=== PATIENT | female | born 1935 | race Caucasian/White ===

== ENCOUNTER 2018-04-15 21:09 | Inpatient (IN) | payer MEDICARE ==
[~2018-04-15] VITALS: Ht 162.6 cm; Wt 102.4 kg
[2018-04-15] MEDS ORDERED: ONDANSETRON ODT 4 MG ONE (21:44)
[2018-04-15] MEDS ORDERED: MORPHINE SULFATE 4 MG/ML, 1ML ONE (21:44)
[2018-04-15] MEDS ORDERED: ONDANSETRON ODT 4 MG PO ONE (22:00)
[2018-04-15] MEDS ORDERED: SODIUM CHLORIDE 0.9% 1,000ML IVBOLUS ONE (22:00)
[2018-04-15] MEDS: MORPHINE SULFATE 4 MG/ML, 1ML IVPush PRN (22:12)
[2018-04-15 22:38] LABS: ALANINE AMINOTRANSFERASE 88 U/L (12-78); ANION GAP 7 mmol/L (5-15); BASOPHILS # (AUTO) 0.02 x10^3/uL (0-0.1); BASOPHILS % (AUTO) 0 % (0-1); CALCIUM 9.4 mg/dL (8.5-10.1); CHLORIDE 105 mmol/L (98-107); CREATININE 1.11 mg/dL (0.55-1.02); EOSINOPHILS # (AUTO) 0.02 x10^3/uL (0-0.4); EOSINOPHILS % (AUTO) 0 % (1-7); HCT (SEDRATE) 45.6 % (34.6-47.8); LYMPHOCYTES # (AUTO) 1.14 x10^3/uL (1-3.4); LYMPHOCYTES % (AUTO) 13 % (22-44); MD NO; MEAN CORPUSCULAR HEMOGLOBIN 32.1 pg (27.0-34.8); MEAN CORPUSCULAR HGB CONC 33.8 g/dL (32.4-35.8); MEAN CORPUSCULAR VOLUME 94.8 fL (80-100); MEAN PLATELET VOLUME 9.2 fL (7.4-10.4); MONOCYTES # (AUTO) 0.46 x10^3/uL (0.2-0.8); MONOCYTES % (AUTO) 5 % (2-9); NEUTROPHILS # (AUTO) 7.01 x10^3/uL (1.8-6.8); NEUTROPHILS % (AUTO) 81 % (42-75); PLATELET COUNT 198 x10^3/uL (130-400); RED BLOOD COUNT 4.77 x10^6/uL (3.82-5.3); RED CELL DISTRIBUTION WIDTH 14.2 % (9.6-15.2)
[2018-04-15 22:42] LABS: SALICYLATE LEVEL < 1.7 mg/dL (2.8-20.0)
[2018-04-15 22:44] LABS: MICROSCOPIC AUTO
[2018-04-15 22:46] LABS: ALKALINE PHOSPHATASE 154 U/L (45-117); BILIRUBIN,TOTAL 0.9 mg/dL (0.2-1.0); FREE T4 (FREE THYROXINE) 1.24 ng/dL (0.76-1.46); TOTAL PROTEIN 7.8 g/dL (6.4-8.2)
[2018-04-15 22:49] LABS: ACETAMINOPHEN < 2 mcg/mL (10-30)
[2018-04-15 22:52] LABS: CULTURE INDICATED? NO
[2018-04-15] MEDS ORDERED: GADOBUTROL 10 MMOL/10 ML PFS ONE (23:40)
[2018-04-16] MEDS ORDERED: MORPHINE SULFATE 4 MG/ML, 1ML ONE (00:58)
[2018-04-16] MEDS: MORPHINE SULFATE 4 MG/ML, 1ML IVPush PRN (00:59)
[2018-04-16 02:32] VITALS: BP 141/85
[2018-04-16] MEDS ORDERED: SODIUM CHLORIDE 0.9% 1,000 ML IV SCH (04:49)
[2018-04-16] MEDS ORDERED: hydrALAzine 20 MG/ML, 1ML IVPush PRN (05:00)
[2018-04-16] MEDS ORDERED: METHOCARBAMOL 500 MG TABLET PO PRN (05:00)
[2018-04-16] MEDS ORDERED: KETOROLAC 30 MG/1 ML IV PRN (05:00)
[2018-04-16] MEDS ORDERED: morphine SULFATE 10 MG/ML, 1ML IVPush PRN (05:00)
[2018-04-16] MEDS ORDERED: ACETAMINOPHEN 325 MG TABLET PO PRN (05:00)
[2018-04-16] MEDS ORDERED: ONDANSETRON 2MG/ML, 2ML IVPush PRN (05:00)
[2018-04-16 05:13] LABS: AMPHETAMINE SCREEN, URINE Negative (Negative); BARBITURATE SCREEN, URINE Negative (Negative); BENZODIAZEPINE SCREEN, URINE Negative (Negative); CANNABINOID SCREEN, URINE Negative (Negative); COCAINE SCREEN, URINE Negative (Negative); METHADONE SCREEN, URINE Negative (Negative); OPIATE SCREEN, URINE Positive (Negative)
[2018-04-16] MEDS: HEPARIN 5,000 UNITS/ML, 1ML SQ SCH ×3 (05:53→21:35)
[2018-04-16 08:14] VITALS: BP 138/81
[2018-04-16] MEDS: LACTULOSE 10 GM/15 ML UDC PO SCH ×2 (08:22→21:35)
[2018-04-16] MEDS: ACETAMINOPHEN 325 MG TABLET PO SCH ×2 (13:10→18:30)
[2018-04-16 13:52] VITALS: BP 134/86
[2018-04-16 19:27] VITALS: BP 132/84
[2018-04-16] MEDS ORDERED: OMNIPAQUE 350 MG/ML, 100ML BOTTLE ONE (20:14)
[2018-04-16] MEDS: ATORVASTATIN 40 MG TABLET PO SCH (21:34)
[2018-04-16] MEDS: CALCIUM CARBONATE 500 MG TABLET PO SCH (21:35)
[2018-04-17] MEDS: ACETAMINOPHEN 325 MG TABLET PO SCH ×4 (00:45→17:34)
[2018-04-17 02:23] VITALS: BP 111/80
[2018-04-17 04:52] LABS: O2 FLOW 4 L/min
[2018-04-17 04:54] LABS: BASOPHILS # (AUTO) 0.03 x10^3/uL (0-0.1); BASOPHILS % (AUTO) 0 % (0-1); EOSINOPHILS # (AUTO) 0.17 x10^3/uL (0-0.4); EOSINOPHILS % (AUTO) 2 % (1-7); LYMPHOCYTES # (AUTO) 2.86 x10^3/uL (1-3.4); LYMPHOCYTES % (AUTO) 28 % (22-44); MD NO; MEAN CORPUSCULAR HEMOGLOBIN 32.4 pg (27.0-34.8); MEAN CORPUSCULAR HGB CONC 33.9 g/dL (32.4-35.8); MEAN CORPUSCULAR VOLUME 95.5 fL (80-100); MEAN PLATELET VOLUME 9.2 fL (7.4-10.4); MONOCYTES # (AUTO) 0.53 x10^3/uL (0.2-0.8); MONOCYTES % (AUTO) 5 % (2-9); NEUTROPHILS # (AUTO) 6.77 x10^3/uL (1.8-6.8); NEUTROPHILS % (AUTO) 65 % (42-75); PLATELET COUNT 208 x10^3/uL (130-400); RED BLOOD COUNT 4.86 x10^6/uL (3.82-5.3); RED CELL DISTRIBUTION WIDTH 14.9 % (9.6-15.2)
[2018-04-17 05:05] LABS: INTERNATIONAL NORMALIZED RATIO 0.99 (0.93-1.1); PROTHROMBIN TIME 10.2 Seconds (9.6-11.5)
[2018-04-17 05:07] LABS: ALANINE AMINOTRANSFERASE 287 U/L (12-78); ANION GAP 22 mmol/L (5-15); CALCIUM 9.9 mg/dL (8.5-10.1); CHLORIDE 106 mmol/L (98-107); CREATININE 1.25 mg/dL (0.55-1.02)
[2018-04-17 05:10] LABS: ALKALINE PHOSPHATASE 245 U/L (45-117); BILIRUBIN,TOTAL 0.8 mg/dL (0.2-1.0); CHOL/HDL RATIO 4.2; CHOLESTEROL, TOTAL 193 mg/dL (140-239); HDL CHOL % 24 % (28-40); HDL CHOLESTEROL (DIRECT) 46 mg/dL (40-60); LDL CHOLESTEROL,CALCULATED 116 mg/dL (54-169); LDL/HDL RATIO 2.5 (0.5-3.0); TOTAL PROTEIN 8.1 g/dL (6.4-8.2); TRIGLYCERIDES 157 mg/dL (50-200); VLDL CHOLESTEROL 31 mg/dL (0-25)
[2018-04-17] MEDS: SODIUM CHLORIDE 0.9% 1,000 ML IV SCH (06:00)
[2018-04-17] MEDS: LEVETIRACETAM 500 MG in SODIUM CHLORIDE 0.9% 100 ML IV SCH ×2 (06:00→17:34)
[2018-04-17] MEDS: HEPARIN 5,000 UNITS/ML, 1ML SQ SCH ×3 (06:01→21:48)
[2018-04-17] MEDS: ALENDRONATE 10 MG TABLET PO SCH (06:26)
[2018-04-17] MEDS: ASPIRIN 81 MG TABLET EC PO SCH (06:26)
[2018-04-17 07:00] VITALS: BP 129/82
[2018-04-17] MEDS: CALCIUM CARBONATE 500 MG TABLET PO SCH ×2 (08:09→20:20)
[2018-04-17] MEDS: LACTULOSE 10 GM/15 ML UDC PO SCH ×2 (08:09→20:18)
[2018-04-17] MEDS ORDERED: FURO20TA3 PO (10:38)
[2018-04-17] MEDS ORDERED: LEVE750T13 PO (10:38)
[2018-04-17] MEDS ORDERED: HYDR-879 PO (10:38)
[2018-04-17] MEDS ORDERED: GABA-826 PO (10:38)
[2018-04-17] MEDS ORDERED: POTASSIUM CHLORIDE 40 MEQ in SODIUM CHLORIDE 0.9% 500 ML IV ONE (11:00)
[2018-04-17 14:10] VITALS: BP 134/78
[2018-04-17 20:00] VITALS: BP 125/83
[2018-04-17] MEDS: GABAPENTIN 100 MG CAPSULE PO SCH (20:20)
[2018-04-17] MEDS: ATORVASTATIN 40 MG TABLET PO SCH (20:20)
[2018-04-18] MEDS: ACETAMINOPHEN 325 MG TABLET PO SCH ×4 (00:24→18:30)
[2018-04-18 01:36] VITALS: BP 162/85
[2018-04-18] MEDS: SODIUM CHLORIDE 0.9% 1,000 ML IV SCH ×2 (04:17→20:42)
[2018-04-18] MEDS: LEVETIRACETAM 500 MG in SODIUM CHLORIDE 0.9% 100 ML IV SCH ×2 (05:18→16:53)
[2018-04-18 05:44] LABS: ANION GAP 5 mmol/L (5-15); CHLORIDE 112 mmol/L (98-107)
[2018-04-18] MEDS: ALENDRONATE 10 MG TABLET PO SCH (06:13)
[2018-04-18] MEDS: ASPIRIN 81 MG TABLET EC PO SCH (06:13)
[2018-04-18] MEDS: HEPARIN 5,000 UNITS/ML, 1ML SQ SCH ×3 (06:13→22:20)
[2018-04-18 06:14] LABS: CREATININE 0.71 mg/dL (0.55-1.02)
[2018-04-18 07:55] VITALS: BP 145/86
[2018-04-18] MEDS: CALCIUM CARBONATE 500 MG TABLET PO SCH ×2 (09:46→20:42)
[2018-04-18] MEDS: GABAPENTIN 100 MG CAPSULE PO SCH ×3 (09:46→20:42)
[2018-04-18] MEDS: LACTULOSE 10 GM/15 ML UDC PO SCH ×2 (09:47→20:39)
[2018-04-18] MEDS ORDERED: GADOBUTROL 10 MMOL/10 ML PFS ONE (13:46)
[2018-04-18 14:17] VITALS: BP 124/77
[2018-04-18] MEDS: CEFTRIAXONE 2 GM in SODIUM CHLORIDE 0.9% 50 ML IV SCH (14:53)
[2018-04-18 19:38] VITALS: BP 116/75
[2018-04-19] MEDS: ACETAMINOPHEN 325 MG TABLET PO SCH ×4 (00:28→18:25)
[2018-04-19 00:44] VITALS: BP 125/76
[2018-04-19 05:34] LABS: ALBUMIN 2.3 g/dL (3.4-5.0); ANION GAP 7 mmol/L (5-15); CALCIUM 8.8 mg/dL (8.5-10.1); CHLORIDE 112 mmol/L (98-107)
[2018-04-19 05:38] LABS: ALANINE AMINOTRANSFERASE 109 U/L (12-78); ALKALINE PHOSPHATASE 151 U/L (45-117); BILIRUBIN,TOTAL 0.4 mg/dL (0.2-1.0); CREATININE 0.74 mg/dL (0.55-1.02); MEAN CORPUSCULAR HEMOGLOBIN 32.1 pg (27.0-34.8); MEAN CORPUSCULAR HGB CONC 33.6 g/dL (32.4-35.8); MEAN CORPUSCULAR VOLUME 95.6 fL (80-100); MEAN PLATELET VOLUME 9.3 fL (7.4-10.4); PLATELET COUNT 176 x10^3/uL (130-400); RED BLOOD COUNT 4.15 x10^6/uL (3.82-5.3); RED CELL DISTRIBUTION WIDTH 14.8 % (9.6-15.2); TOTAL PROTEIN 6.3 g/dL (6.4-8.2)
[2018-04-19] MEDS: LEVETIRACETAM 500 MG in SODIUM CHLORIDE 0.9% 100 ML IV SCH ×2 (05:39→18:25)
[2018-04-19 05:57] LABS: BASOPHILS # (AUTO) 0.03 x10^3/uL (0-0.1); BASOPHILS % (AUTO) 0 % (0-1); EOSINOPHILS # (AUTO) 0.08 x10^3/uL (0-0.4); EOSINOPHILS % (AUTO) 1 % (1-7); LYMPHOCYTES # (AUTO) 1.32 x10^3/uL (1-3.4); LYMPHOCYTES % (AUTO) 19 % (22-44); MD SCAN; MONOCYTES # (AUTO) 0.42 x10^3/uL (0.2-0.8); MONOCYTES % (AUTO) 6 % (2-9); NEUTROPHILS # (AUTO) 5.25 x10^3/uL (1.8-6.8); NEUTROPHILS % (AUTO) 74 % (42-75)
[2018-04-19] MEDS: ASPIRIN 81 MG TABLET EC PO SCH (06:23)
[2018-04-19] MEDS: HEPARIN 5,000 UNITS/ML, 1ML SQ SCH ×3 (06:23→21:52)
[2018-04-19] MEDS: ALENDRONATE 10 MG TABLET PO SCH (06:23)
[2018-04-19 07:34] VITALS: BP 141/79
[2018-04-19] MEDS: GABAPENTIN 100 MG CAPSULE PO SCH ×3 (08:19→21:52)
[2018-04-19] MEDS: CALCIUM CARBONATE 500 MG TABLET PO SCH ×2 (08:20→21:52)
[2018-04-19] MEDS: POTASSIUM CHLORIDE 20 MEQ TAB.ER.PRT PO SCH ×2 (08:20→16:32)
[2018-04-19 13:40] VITALS: BP 129/85
[2018-04-19] MEDS: SODIUM CHLORIDE 0.9% 1,000 ML IV SCH (14:01)
[2018-04-19] MEDS: CEFTRIAXONE 2 GM in SODIUM CHLORIDE 0.9% 50 ML IV SCH (14:36)
[2018-04-19 20:19] VITALS: BP 126/79
[2018-04-20] MEDS: ACETAMINOPHEN 325 MG TABLET PO SCH ×4 (00:30→17:08)
[2018-04-20 01:35] VITALS: BP 149/84
[2018-04-20 04:57] LABS: BASOPHILS # (AUTO) 0.03 x10^3/uL (0-0.1); BASOPHILS % (AUTO) 1 % (0-1); EOSINOPHILS # (AUTO) 0.09 x10^3/uL (0-0.4); EOSINOPHILS % (AUTO) 2 % (1-7); LYMPHOCYTES # (AUTO) 1.32 x10^3/uL (1-3.4); LYMPHOCYTES % (AUTO) 24 % (22-44); MD NO; MEAN CORPUSCULAR HEMOGLOBIN 31.8 pg (27.0-34.8); MEAN CORPUSCULAR VOLUME 93.7 fL (80-100); MEAN PLATELET VOLUME 8.9 fL (7.4-10.4); MONOCYTES # (AUTO) 0.35 x10^3/uL (0.2-0.8); MONOCYTES % (AUTO) 6 % (2-9); NEUTROPHILS # (AUTO) 3.74 x10^3/uL (1.8-6.8); NEUTROPHILS % (AUTO) 68 % (42-75); PLATELET COUNT 179 x10^3/uL (130-400); RED BLOOD COUNT 4.09 x10^6/uL (3.82-5.3); RED CELL DISTRIBUTION WIDTH 15.1 % (9.6-15.2)
[2018-04-20 05:05] LABS: ALANINE AMINOTRANSFERASE 81 U/L (12-78); ALBUMIN 2.3 g/dL (3.4-5.0); ANION GAP 7 mmol/L (5-15); C-REACTIVE PROTEIN, QUANT 0.82 mg/dL (0.02-0.49); CHLORIDE 114 mmol/L (98-107); CREATININE 0.68 mg/dL (0.55-1.02)
[2018-04-20 05:07] LABS: ALKALINE PHOSPHATASE 143 U/L (45-117); BILIRUBIN,TOTAL 0.3 mg/dL (0.2-1.0); TOTAL PROTEIN 6.1 g/dL (6.4-8.2)
[2018-04-20 05:33] LABS: HCT (SEDRATE) 39.7 % (34.6-47.8)
[2018-04-20] MEDS: LEVETIRACETAM 500 MG in SODIUM CHLORIDE 0.9% 100 ML IV SCH ×2 (05:38→17:08)
[2018-04-20] MEDS: SODIUM CHLORIDE 0.9% 1,000 ML IV SCH (05:39)
[2018-04-20] MEDS: ASPIRIN 81 MG TABLET EC PO SCH (05:40)
[2018-04-20] MEDS: HEPARIN 5,000 UNITS/ML, 1ML SQ SCH ×3 (05:40→21:55)
[2018-04-20] MEDS: ALENDRONATE 10 MG TABLET PO SCH (05:41)
[2018-04-20] MEDS: POTASSIUM CHLORIDE 20 MEQ TAB.ER.PRT PO SCH ×2 (07:58→17:08)
[2018-04-20] MEDS: GABAPENTIN 100 MG CAPSULE PO SCH ×3 (07:58→19:55)
[2018-04-20] MEDS: CALCIUM CARBONATE 500 MG TABLET PO SCH ×2 (07:58→19:55)
[2018-04-20 08:05] VITALS: BP 150/104
[2018-04-20 13:41] VITALS: BP 118/85
[2018-04-20] MEDS: CEFTRIAXONE 2 GM in SODIUM CHLORIDE 0.9% 50 ML IV SCH (14:16)
[2018-04-20 20:15] VITALS: BP 151/81
[2018-04-21] MEDS: SODIUM CHLORIDE 0.9% 1,000 ML IV SCH ×2 (00:28→15:50)
[2018-04-21] MEDS: ACETAMINOPHEN 325 MG TABLET PO SCH ×5 (00:29→20:38)
[2018-04-21 02:14] VITALS: BP 133/83
[2018-04-21 05:05] LABS: BASOPHILS # (AUTO) 0.03 x10^3/uL (0-0.1); BASOPHILS % (AUTO) 1 % (0-1); EOSINOPHILS # (AUTO) 0.12 x10^3/uL (0-0.4); EOSINOPHILS % (AUTO) 2 % (1-7); LYMPHOCYTES # (AUTO) 1.47 x10^3/uL (1-3.4); LYMPHOCYTES % (AUTO) 24 % (22-44); MD NO; MEAN CORPUSCULAR HEMOGLOBIN 32.1 pg (27.0-34.8); MEAN CORPUSCULAR VOLUME 94.3 fL (80-100); MEAN PLATELET VOLUME 9.3 fL (7.4-10.4); MONOCYTES # (AUTO) 0.35 x10^3/uL (0.2-0.8); MONOCYTES % (AUTO) 6 % (2-9); NEUTROPHILS # (AUTO) 4.07 x10^3/uL (1.8-6.8); NEUTROPHILS % (AUTO) 67 % (42-75); PLATELET COUNT 177 x10^3/uL (130-400); RED BLOOD COUNT 4.15 x10^6/uL (3.82-5.3); RED CELL DISTRIBUTION WIDTH 14.6 % (9.6-15.2)
[2018-04-21 05:06] LABS: ANION GAP 5 mmol/L (5-15); CALCIUM 9.5 mg/dL (8.5-10.1); CHLORIDE 114 mmol/L (98-107)
[2018-04-21 05:08] LABS: CREATININE 0.66 mg/dL (0.55-1.02)
[2018-04-21] MEDS: LEVETIRACETAM 500 MG in SODIUM CHLORIDE 0.9% 100 ML IV SCH ×2 (05:22→18:06)
[2018-04-21] MEDS: ALENDRONATE 10 MG TABLET PO SCH (06:16)
[2018-04-21] MEDS: HEPARIN 5,000 UNITS/ML, 1ML SQ SCH ×3 (06:16→21:54)
[2018-04-21] MEDS: ASPIRIN 81 MG TABLET EC PO SCH (06:16)
[2018-04-21 07:42] VITALS: BP 138/84
[2018-04-21] MEDS: CALCIUM CARBONATE 500 MG TABLET PO SCH ×2 (09:32→20:38)
[2018-04-21] MEDS: GABAPENTIN 100 MG CAPSULE PO SCH ×3 (09:33→20:38)
[2018-04-21] MEDS: POTASSIUM CHLORIDE 20 MEQ TAB.ER.PRT PO SCH ×2 (09:33→17:25)
[2018-04-21 15:19] VITALS: BP 128/84
[2018-04-21 19:30] VITALS: BP 122/78
[2018-04-22 00:13] VITALS: BP 125/84
[2018-04-22] MEDS: ACETAMINOPHEN 325 MG TABLET PO SCH ×3 (02:30→16:08)
[2018-04-22] MEDS: LEVETIRACETAM 500 MG in SODIUM CHLORIDE 0.9% 100 ML IV SCH (05:23)
[2018-04-22] MEDS: ASPIRIN 81 MG TABLET EC PO SCH (06:11)
[2018-04-22] MEDS: HEPARIN 5,000 UNITS/ML, 1ML SQ SCH ×2 (06:11→14:00)
[2018-04-22] MEDS: ALENDRONATE 10 MG TABLET PO SCH (06:11)
[2018-04-22 07:30] VITALS: BP 115/66
[2018-04-22] MEDS: POTASSIUM CHLORIDE 20 MEQ TAB.ER.PRT PO SCH ×2 (08:00→17:00)
[2018-04-22] MEDS: SODIUM CHLORIDE 0.9% 1,000 ML IV SCH (08:30)
[2018-04-22] MEDS: GABAPENTIN 100 MG CAPSULE PO SCH ×2 (09:00→16:00)
[2018-04-22] MEDS: CALCIUM CARBONATE 500 MG TABLET PO SCH (09:00)
[2018-04-22 14:10] VITALS: BP 111/69
== END 2018-04-22 17:22 | DRG 542 ==
LOC: ED 23:59 → EDIP 04-16 01:38 → 4NOR 04-16 02:25
PROVIDERS: ADMIT Hospitalist; ATTEND Hospitalist
PROC: 0T9B70Z Drainage of Bladder with Drainage Device, Via Natural or Artificial Opening (ICD-10-PCS; principal; 2018-04-15)
DX: M48.56XA Collapsed vertebra, not elsewhere classified, lumbar region, initial encounter for fracture (principal); G93.40 Encephalopathy, unspecified; R78.81 Bacteremia; E66.9 Obesity, unspecified; E86.0 Dehydration; G40.909 Epilepsy, unspecified, not intractable, without status epilepticus; K76.0 Fatty (change of) liver, not elsewhere classified; M43.16 Spondylolisthesis, lumbar region; M51.34 Other intervertebral disc degeneration, thoracic region; M54.16 Radiculopathy, lumbar region; N28.1 Cyst of kidney, acquired; R32 Unspecified urinary incontinence; G31.9 Degenerative disease of nervous system, unspecified; G93.89 Other specified disorders of brain; G31.1 Senile degeneration of brain, not elsewhere classified; M48.061 Spinal stenosis, lumbar region without neurogenic claudication; Z86.73 Personal history of transient ischemic attack (TIA), and cerebral infarction without residual deficits; Z87.891 Personal history of nicotine dependence; Z68.38 Body mass index [BMI] 38.0-38.9, adult
CPT/HCPCS: 22514; 36415; 36600; 70450; 70553; 71045; 72157; 72158; 74178; 76700; 80048; 80053; 80061; 80307; 80329; 81001; 82140; 82306; 82607; 82803; 82962; 83735; 84100; 84439; 84443; 85025; 85610; 85651; 85730; 86140; 87040; 93005; 93306; 95819; 96361; 96374; 96376; A9585; G0378; J0696; J1644; J1953; J3480; Q0162; Q9967; 92523-GN; G0480; J7030; J7040

== ENCOUNTER 2018-11-26 18:42 | Inpatient (IN) | payer MEDICARE ==
[~2018-11-26] VITALS: Ht 162.6 cm; Wt 91.9 kg
[~2018-11-26 18:42] MED LIST: FURO20TA3 PO; GABA-826 PO; HYDR-3622 PO; LEVE750T21 PO
[2018-11-26] MEDS ORDERED: NYST15OI TP (18:48)
[2018-11-26] MEDS ORDERED: SODIUM CHLORIDE FLUSH 10ML SYR IVF ONE (19:30)
[2018-11-26 19:48] LABS: BASOPHILS # (AUTO) 0.03 x10^3/uL (0-0.1); BASOPHILS % (AUTO) 1 % (0-1); EOSINOPHILS # (AUTO) 0.08 x10^3/uL (0-0.4); EOSINOPHILS % (AUTO) 1 % (1-7); LYMPHOCYTES # (AUTO) 1.31 x10^3/uL (1-3.4); LYMPHOCYTES % (AUTO) 19 % (22-44); MD NO; MEAN CORPUSCULAR HEMOGLOBIN 31.9 pg (27.0-34.8); MEAN CORPUSCULAR HGB CONC 33.8 g/dL (32.4-35.8); MEAN CORPUSCULAR VOLUME 94.4 fL (80-100); MEAN PLATELET VOLUME 8.8 fL (7.4-10.4); MONOCYTES # (AUTO) 0.46 x10^3/uL (0.2-0.8); MONOCYTES % (AUTO) 7 % (2-9); NEUTROPHILS # (AUTO) 4.87 x10^3/uL (1.8-6.8); NEUTROPHILS % (AUTO) 72 % (42-75); PLATELET COUNT 234 x10^3/uL (130-400); RED BLOOD COUNT 5.06 x10^6/uL (3.82-5.3); RED CELL DISTRIBUTION WIDTH 14.6 % (9.6-15.2)
--- NOTE | 2018-11-26 19:53 | NUR ---
IV established. Patient straight cath for urine sample. Hospice notified that patient is being admitted to hospital.
[2018-11-26 19:57] LABS: ALANINE AMINOTRANSFERASE 26 U/L (12-78); ALBUMIN 3.5 g/dL (3.4-5.0); ANION GAP 9 mmol/L (5-15); CALCIUM 9.8 mg/dL (8.5-10.1); CHLORIDE 108 mmol/L (98-107)
[2018-11-26 19:59] LABS: ALKALINE PHOSPHATASE 128 U/L (45-117); BILIRUBIN,TOTAL 0.7 mg/dL (0.2-1.0); TOTAL PROTEIN 9.1 g/dL (6.4-8.2)
[2018-11-26 20:12] LABS: CULTURE INDICATED? YES; MICROSCOPIC INDICATED
[2018-11-26] MEDS ORDERED: LIDODERM 5% PATCH TD PRN (21:00)
[2018-11-26] MEDS ORDERED: LABETALOL 5MG/ML, 20ML IVPush PRN (21:00)
[2018-11-26] MEDS ORDERED: ACETAMINOPHEN 325 MG TABLET PO PRN (21:00)
[2018-11-26] MEDS ORDERED: ONDANSETRON ODT 4 MG PO PRN (21:00)
[2018-11-26] MEDS ORDERED: DIPHENHYDRAMINE 25 MG CAPSULE PO PRN (21:00)
[2018-11-26] MEDS ORDERED: BISACODYL 10 MG SUPP PR PRN (21:00)
--- NOTE | 2018-11-26 21:04 | NUR ---
Report called to floor GREGORY Goldman.
[2018-11-26] MEDS: HYDROcodone/APAP 10/325 MG TABLET PO SCH (21:30)
[2018-11-26] MEDS ORDERED: D5%-0.45% NACL 1,000 ML IV SCH (21:50)
[2018-11-26] MEDS: HEPARIN 5,000 UNITS/ML, 1ML SQ SCH (22:58)
[2018-11-26] MEDS: GABAPENTIN 100 MG CAPSULE PO SCH (22:58)
[2018-11-27 01:32] VITALS: BP 139/78
[2018-11-27] MEDS: HYDROcodone/APAP 10/325 MG TABLET PO SCH ×3 (01:47→20:48)
[2018-11-27 04:32] LABS: BASOPHILS # (AUTO) 0.07 x10^3/uL (0-0.1); BASOPHILS % (AUTO) 1 % (0-1); EOSINOPHILS # (AUTO) 0.14 x10^3/uL (0-0.4); EOSINOPHILS % (AUTO) 2 % (1-7); LYMPHOCYTES # (AUTO) 1.52 x10^3/uL (1-3.4); LYMPHOCYTES % (AUTO) 26 % (22-44); MD NO; MEAN CORPUSCULAR HEMOGLOBIN 31.8 pg (27.0-34.8); MEAN CORPUSCULAR HGB CONC 33.5 g/dL (32.4-35.8); MEAN CORPUSCULAR VOLUME 94.9 fL (80-100); MONOCYTES # (AUTO) 0.41 x10^3/uL (0.2-0.8); MONOCYTES % (AUTO) 7 % (2-9); NEUTROPHILS # (AUTO) 3.75 x10^3/uL (1.8-6.8); NEUTROPHILS % (AUTO) 64 % (42-75); PLATELET COUNT 200 x10^3/uL (130-400); RED CELL DISTRIBUTION WIDTH 15.3 % (9.6-15.2)
[2018-11-27 04:41] LABS: ANION GAP 6 mmol/L (5-15); CALCIUM 8.9 mg/dL (8.5-10.1); CHLORIDE 110 mmol/L (98-107); CREATININE 0.98 mg/dL (0.55-1.02)
[2018-11-27 08:27] VITALS: BP 135/87
[2018-11-27] MEDS: GABAPENTIN 100 MG CAPSULE PO SCH ×3 (08:35→20:47)
[2018-11-27] MEDS: LEVETIRACETAM 500 MG TABLET PO SCH ×2 (08:36→20:47)
[2018-11-27] MEDS: HEPARIN 5,000 UNITS/ML, 1ML SQ SCH ×2 (08:37→16:01)
[2018-11-27] MEDS: NYSTATIN OINT 15GM TP SCH ×3 (09:00→20:47)
[2018-11-27 13:38] VITALS: BP 125/69
[2018-11-27 18:57] VITALS: BP 121/70
[2018-11-28] MEDS: HEPARIN 5,000 UNITS/ML, 1ML SQ SCH ×2 (00:12→09:01)
[2018-11-28 01:16] VITALS: BP 130/73
[2018-11-28] MEDS: HYDROcodone/APAP 10/325 MG TABLET PO SCH ×3 (05:30→21:30)
[2018-11-28 08:05] VITALS: BP 132/97
[2018-11-28] MEDS: GABAPENTIN 100 MG CAPSULE PO SCH ×3 (08:59→21:20)
[2018-11-28] MEDS: LEVETIRACETAM 500 MG TABLET PO SCH ×2 (08:59→21:20)
[2018-11-28] MEDS: NYSTATIN OINT 15GM TP SCH (09:01)
[2018-11-28 10:35] LABS: CLOSTRIDIUM DIFFICILE ANTIGEN NEGATIVE; CLOSTRIDIUM DIFFICILE TOXIN NEGATIVE (Negative)
[2018-11-28] MEDS ORDERED: POTASSIUM CHLORIDE 40 MEQ in SODIUM CHLORIDE 0.9% 500 ML IV ONE (12:00)
[2018-11-28 12:59] VITALS: BP 139/78
[2018-11-28] MEDS: ENOXAPARIN 60 MG/0.6 ML SQ SCH (17:26)
[2018-11-28 19:17] VITALS: BP 137/77
[2018-11-28] MEDS: NYSTATIN TOPICAL POWDER 15GM TP SCH (22:38)
[2018-11-29 00:29] VITALS: BP 125/76
[2018-11-29] MEDS: HYDROcodone/APAP 10/325 MG TABLET PO SCH ×3 (05:01→21:26)
[2018-11-29] MEDS: ENOXAPARIN 60 MG/0.6 ML SQ SCH ×2 (05:01→17:07)
[2018-11-29 07:56] VITALS: BP 130/80
[2018-11-29] MEDS: LEVETIRACETAM 500 MG TABLET PO SCH ×2 (09:52→21:25)
[2018-11-29] MEDS: GABAPENTIN 100 MG CAPSULE PO SCH ×3 (09:53→21:25)
[2018-11-29] MEDS: NYSTATIN TOPICAL POWDER 15GM TP SCH ×3 (09:53→21:25)
[2018-11-29 19:36] VITALS: BP 133/88
[2018-11-30 02:14] VITALS: BP 135/83
[2018-11-30] MEDS: ENOXAPARIN 60 MG/0.6 ML SQ SCH ×2 (05:25→16:18)
[2018-11-30] MEDS: HYDROcodone/APAP 10/325 MG TABLET PO SCH ×3 (05:30→21:19)
[2018-11-30 06:59] VITALS: BP 138/81
[2018-11-30] MEDS: LEVETIRACETAM 500 MG TABLET PO SCH ×2 (09:33→21:19)
[2018-11-30] MEDS: GABAPENTIN 100 MG CAPSULE PO SCH ×3 (09:33→21:19)
[2018-11-30] MEDS: NYSTATIN TOPICAL POWDER 15GM TP SCH ×3 (09:34→21:19)
[2018-11-30 13:26] VITALS: BP 127/95
[2018-11-30 19:04] VITALS: BP 129/85
[2018-12-01 02:00] VITALS: BP 142/90
[2018-12-01] MEDS: ENOXAPARIN 60 MG/0.6 ML SQ SCH ×2 (05:17→17:00)
[2018-12-01] MEDS: HYDROcodone/APAP 10/325 MG TABLET PO SCH (05:18)
[2018-12-01 07:35] VITALS: BP 124/77
[2018-12-01] MEDS: NYSTATIN TOPICAL POWDER 15GM TP SCH ×3 (09:47→21:04)
[2018-12-01] MEDS: LEVETIRACETAM 500 MG TABLET PO SCH ×2 (09:47→21:03)
[2018-12-01] MEDS: GABAPENTIN 100 MG CAPSULE PO SCH ×3 (09:47→21:03)
[2018-12-01 12:13] VITALS: BP 128/88
[2018-12-01 18:36] VITALS: BP 112/69
[2018-12-01 20:53] VITALS: BP 138/90
[2018-12-02 02:05] VITALS: BP 116/69
[2018-12-02] MEDS: ENOXAPARIN 60 MG/0.6 ML SQ SCH (06:07)
[2018-12-02 07:25] VITALS: BP 137/83
[2018-12-02] MEDS: NYSTATIN TOPICAL POWDER 15GM TP SCH ×3 (08:33→21:16)
[2018-12-02] MEDS: GABAPENTIN 100 MG CAPSULE PO SCH ×3 (08:33→21:15)
[2018-12-02] MEDS: LEVETIRACETAM 500 MG TABLET PO SCH ×2 (08:33→21:15)
[2018-12-02 15:15] VITALS: BP 114/69
[2018-12-02] MEDS: ENOXAPARIN 80 MG/0.8 ML SQ SCH (18:44)
[2018-12-02 19:16] VITALS: BP 121/67
[2018-12-03 02:45] VITALS: BP 110/73
[2018-12-03] MEDS: ENOXAPARIN 80 MG/0.8 ML SQ SCH ×2 (05:38→17:17)
[2018-12-03 08:29] VITALS: BP 137/84
[2018-12-03] MEDS: NYSTATIN TOPICAL POWDER 15GM TP SCH ×3 (08:32→21:14)
[2018-12-03] MEDS: GABAPENTIN 100 MG CAPSULE PO SCH ×3 (08:32→21:14)
[2018-12-03] MEDS: LEVETIRACETAM 500 MG TABLET PO SCH ×2 (08:32→21:14)
[2018-12-03 14:49] VITALS: BP 108/67
[2018-12-03 19:17] VITALS: BP 124/65
[2018-12-04 00:10] VITALS: BP 125/70
[2018-12-04] MEDS: ENOXAPARIN 80 MG/0.8 ML SQ SCH ×2 (05:45→17:36)
[2018-12-04 07:26] VITALS: BP 129/77
[2018-12-04] MEDS: NYSTATIN TOPICAL POWDER 15GM TP SCH ×3 (09:06→19:50)
[2018-12-04] MEDS: GABAPENTIN 100 MG CAPSULE PO SCH ×3 (09:06→19:50)
[2018-12-04] MEDS: LEVETIRACETAM 500 MG TABLET PO SCH ×2 (09:06→20:16)
[2018-12-04 15:05] VITALS: BP 125/81
[2018-12-04 21:41] VITALS: BP 115/74
[2018-12-05 03:00] VITALS: BP 124/55
[2018-12-05] MEDS: ENOXAPARIN 80 MG/0.8 ML SQ SCH ×2 (06:00→16:59)
[2018-12-05 07:45] VITALS: BP 148/81
[2018-12-05] MEDS: GABAPENTIN 100 MG CAPSULE PO SCH ×3 (08:47→21:00)
[2018-12-05] MEDS: LEVETIRACETAM 500 MG TABLET PO SCH ×2 (08:47→21:00)
[2018-12-05] MEDS: NYSTATIN TOPICAL POWDER 15GM TP SCH ×3 (08:47→21:00)
[2018-12-05 09:09] LABS: CREATININE 0.93 mg/dL (0.55-1.02)
[2018-12-05 15:57] VITALS: BP 150/92
[2018-12-05 19:24] VITALS: BP 155/84
[2018-12-06 01:14] VITALS: BP 147/72
[2018-12-06] MEDS: ENOXAPARIN 80 MG/0.8 ML SQ SCH (06:14)
[2018-12-06 08:09] VITALS: BP 138/81
[2018-12-06] MEDS: NYSTATIN TOPICAL POWDER 15GM TP SCH (10:05)
[2018-12-06] MEDS: LEVETIRACETAM 500 MG TABLET PO SCH ×2 (10:05→20:11)
[2018-12-06] MEDS: GABAPENTIN 100 MG CAPSULE PO SCH ×3 (10:05→20:11)
[2018-12-06 13:17] VITALS: BP 134/75
[2018-12-06] MEDS: ENOXAPARIN 100 MG/ML SQ SCH (18:15)
[2018-12-06 20:02] VITALS: BP 100/69
[2018-12-07 03:00] VITALS: BP 134/84
[2018-12-07 04:16] VITALS: BP 134/84
[2018-12-07] MEDS: ENOXAPARIN 100 MG/ML SQ SCH ×2 (05:49→17:21)
[2018-12-07 06:34] VITALS: BP 128/76
[2018-12-07] MEDS: LEVETIRACETAM 500 MG TABLET PO SCH ×2 (10:46→20:12)
[2018-12-07] MEDS: GABAPENTIN 100 MG CAPSULE PO SCH ×3 (10:46→20:12)
[2018-12-07 14:20] VITALS: BP 120/64
[2018-12-07 21:10] VITALS: BP 117/80
[2018-12-08 02:00] VITALS: BP 142/88
[2018-12-08 04:11] VITALS: BP 142/88
[2018-12-08] MEDS: ENOXAPARIN 100 MG/ML SQ SCH ×2 (05:55→17:25)
[2018-12-08 07:47] VITALS: BP 133/85
[2018-12-08] MEDS: GABAPENTIN 100 MG CAPSULE PO SCH ×3 (08:19→21:18)
[2018-12-08] MEDS: LEVETIRACETAM 500 MG TABLET PO SCH ×2 (08:20→21:18)
[2018-12-08 12:51] VITALS: BP 121/80
[2018-12-08 18:30] VITALS: BP 144/86
[2018-12-09 04:00] VITALS: BP 128/73
[2018-12-09] MEDS: ENOXAPARIN 100 MG/ML SQ SCH (06:31)
[2018-12-09 08:27] VITALS: BP 113/84
[2018-12-09] MEDS: GABAPENTIN 100 MG CAPSULE PO SCH (08:39)
[2018-12-09] MEDS: LEVETIRACETAM 500 MG TABLET PO SCH (08:39)
[2018-12-09 09:23] LABS: ALBUMIN 2.9 g/dL (3.4-5.0); ANION GAP 5 mmol/L (5-15); CALCIUM 9.1 mg/dL (8.5-10.1); CHLORIDE 109 mmol/L (98-107); CREATININE 0.99 mg/dL (0.55-1.02)
[2018-12-09] MEDS ORDERED: POTASSIUM CHLORIDE 20 MEQ TAB.ER.PRT PO ONE (11:30)
[2018-12-09 12:25] VITALS: BP 113/80
== END 2018-12-09 14:55 | disposition hospice, home (50) | DRG 299 ==
LOC: ED 19:37 → EDIP 20:10 → 4NOR 21:30
PROVIDERS: ADMIT Family Medicine; ATTEND Family Medicine
DX: I82.432 Acute embolism and thrombosis of left popliteal vein (principal); N17.0 Acute kidney failure with tubular necrosis; R62.7 Adult failure to thrive; B36.9 Superficial mycosis, unspecified; Z66 Do not resuscitate; N18.3 Chronic kidney disease, stage 3 (moderate); G40.909 Epilepsy, unspecified, not intractable, without status epilepticus; Z51.5 Encounter for palliative care; M79.89 Other specified soft tissue disorders; F01.50 Vascular dementia, unspecified severity, without behavioral disturbance, psychotic disturbance, mood disturbance, and anxiety; F03.90 Unspecified dementia, unspecified severity, without behavioral disturbance, psychotic disturbance, mood disturbance, and anxiety; Z91.81 History of falling
CPT/HCPCS: 36415; 70450; 80048; 80053; 80069; 81001; 82565; 85025; 86480; 87086; 87324; 93005; 99285; G0378; J1644; J1650; J3480; J7040; Q0163